=== PATIENT | female | born 1935 | race Caucasian/White ===

== ENCOUNTER 2017-12-22 16:26 | Inpatient (IN) ==
[2017-12-26 08:07] VITALS: BP 144/79
== END 2017-12-26 11:55 | DRG 689 ==
LOC: EDUNIT# → EDBD → N.ED 16:26 → SUATTDRO 19:37 → N.EDINP 19:37 → N.3E 20:51
PROVIDERS: ADMIT Internal Medicine; ATTEND Hospitalist

== ENCOUNTER 2018-07-31 20:42 | Inpatient (IN) ==
[2018-07-31] MEDS ORDERED: ONDANSETRON 4 MG/2 ML VIAL ONE (21:18)
[2018-07-31] MEDS ORDERED: SODIUM CHLORIDE 0.9% 1,000 ML IV STA (21:30)
[2018-07-31] MEDS ORDERED: ONDANSETRON 4 MG/2 ML VIAL IV STA (21:30)
[2018-07-31] MEDS ORDERED: KETOROLAC 30 MG/1 ML VIAL IV STA (21:46)
[2018-07-31 21:50] LABS: Basophils % 0.2 % (0.0-0.8); Eosinophils % 0.2 % (0.00-10.9); Hematocrit 38.4 VOL% (35.7-47.0); Hemoglobin 12.4 GM/DL (12.0-16.0); Immature Granulocytes % 0.7 %; Immature Granulocytes Absolute 0.11 #; Lymphocytes # 5.4 10*3/uL (1.4-4.0); Lymphocytes % 33.1 % (21.3-54.2); Mean Corpuscular HGB Conc 32.3 GM/DL (32-36); Mean Corpuscular Hemoglobin 31 PG (27-34); Mean Corpuscular Volume 96.5 FL (87-102); Mean Platelet Volume 9.8 FL (9.6-12.0); Monocytes # 0.9 10*3/uL (0.11-0.8); Monocytes % 5.8 % (1.7-12.7); Neutrophils # 9.8 10*3/uL (1.4-7.4); Platelet Count 200 T/CUMM (130-400); Red Blood Count 3.98 MC/CUMM (3.8-5.5); Red Cell Distribution Width 12.5 % (9.3-17.3); White Blood Count 16.3 T/CUMM (4-12)
[2018-07-31 22:12] LABS: Albumin 3.3 G/DL (3.4-5.0); Bilirubin,Total 0.5 MG/DL (0.2-1.0); Calcium 9.1 MG/DL (8.5-10.1); Osmolality,Calculated 281.7 MOS/KG (273-304); Potassium 3.5 MMOL/L (3.5-5.1); Total Protein 6.5 G/DL (6.4-8.3)
[2018-07-31 22:15] LABS: Lymphocytes 13 % (20-55); Platelet Estimate Normal; Segmented Neutrophils 78 % (50-85)
[2018-07-31 22:16] LABS: Anisocytosis Slight; Total Cells Counted 100
[2018-07-31] MEDS ORDERED: NITROGLYCERIN 2% OINT 1 INCH/GM PACK TOP STA (22:44)
[2018-07-31] MEDS ORDERED: ENOXAPARIN 30 MG/0.3 ML SYRINGE SUBCUT STA (22:44)
[2018-07-31] MEDS ORDERED: ASPIRIN 325 MG TABLET PO STA (22:44)
[2018-07-31] MEDS ORDERED: MORPHINE 4 MG/1 ML VIAL IV STA (22:44)
[2018-07-31] MEDS ORDERED: ASPIRIN 325 MG TABLET ONE (22:47)
[2018-07-31] MEDS ORDERED: ENOXAPARIN 60 MG/0.6 ML SYRINGE ONE (22:47)
[2018-07-31] MEDS ORDERED: MORPHINE 4 MG/1 ML VIAL IV PRN (23:37)
[2018-07-31] MEDS ORDERED: ONDANSETRON ODT 4 MG TABLET PO PRN (23:44)
[2018-07-31] MEDS ORDERED: FLUTICASONE 50 MCG NASAL SPRAY 16 GM BOTTLE BOTH NARES PRN (23:44)
[2018-07-31] MEDS ORDERED: DIPHENOXYLATE/ATROPINE 2.5-0.025 MG TABLET PO PRN (23:44)
[2018-07-31] MEDS ORDERED: GLUCAGON 1 MG VIAL IM PRN (23:47)
[2018-07-31] MEDS ORDERED: DEXTROSE 50% 25 GM/50 ML SYRINGE IV PRN (23:47)
[2018-08-01] MEDS: ONDANSETRON 4 MG/2 ML VIAL IV PRN ×3 (01:27→10:00)
[2018-08-01 01:33] LABS: Risk Ratio 3.37; VLDL CHOLESTEROL 27.4 MG/DL
[2018-08-01] MEDS: QUEtiapine 25 MG TABLET PO SCH ×2 (06:55→21:46)
[2018-08-01] MEDS: INSULIN REGULAR 100 UNIT/ML SUBCUT SCH ×5 (06:55→21:50)
[2018-08-01] MEDS: NITROGLYCERIN 2% OINT 1 INCH/GM PACK TOP SCH ×2 (06:56→12:25)
[2018-08-01] MEDS: MELOXICAM 7.5 MG TABLET PO SCH (08:09)
[2018-08-01] MEDS ORDERED: ENOXAPARIN 80 MG/0.8 ML SYRINGE SUBCUT SCH (12:00)
[2018-08-01] MEDS ORDERED: diphenhydrAMINE CAP 50 MG CAPSULE PO STA (12:04)
[2018-08-01] MEDS: FEXOFENADINE 180 MG TABLET PO SCH (12:22)
[2018-08-01] MEDS: CALCIUM (CARBONATE)/VITAMIN D 600 MG-400 UNIT TABLET PO SCH ×2 (12:23→21:46)
[2018-08-01] MEDS: OXYBUTYNIN XL 5 MG TABLET PO SCH (12:23)
[2018-08-01] MEDS: AZELASTINE NASAL 137 MCG/SPRAY 30 ML BOTTLE BOTH NARES SCH ×2 (12:23→21:46)
[2018-08-01] MEDS: METOPROLOL TARTRATE 50 MG TABLET PO SCH (12:23)
[2018-08-01] MEDS: POTASSIUM CHLORIDE 10 MEQ TABLET PO SCH ×2 (12:23→21:47)
[2018-08-01] MEDS: PANTOPRAZOLE 40 MG TABLET PO SCH (12:24)
[2018-08-01] MEDS: SERTRALINE 50 MG TABLET PO SCH (12:24)
[2018-08-01] MEDS: GABAPENTIN 100 MG CAPSULE PO SCH ×3 (12:24→21:47)
[2018-08-01] MEDS: MEMANTINE 5 MG TABLET PO SCH ×2 (12:24→21:47)
[2018-08-01] MEDS: ASPIRIN EC 81 MG TABLET PO SCH (12:24)
[2018-08-01] MEDS: LISINOPRIL 10 MG TABLET PO SCH (12:24)
[2018-08-01] MEDS ORDERED: HYDROmorphone 2 MG/1 ML VIAL ONE (12:32)
[2018-08-01] MEDS ORDERED: MIDAZOLAM 2 MG/2 ML VIAL ONE (12:32)
[2018-08-01] MEDS ORDERED: LIDOCAINE 1% 20 ML VIAL ONE (12:32)
[2018-08-01] MEDS ORDERED: HEPARIN/NACL 0.9% 2 UNITS/ML 500 ML IV ONE (12:37)
[2018-08-01] MEDS: SODIUM CHLORIDE 0.9% 1,000 ML IV SCH ×2 (12:50→23:55)
[2018-08-01] MEDS ORDERED: MAGNESIUM SULF RIDER 2 GM in PREMIX 1 EACH IV PRN (12:53)
[2018-08-01] MEDS ORDERED: diphenhydrAMINE CAP 25 MG CAPSULE PO ONE (12:53)
[2018-08-01] MEDS ORDERED: POTASSIUM CHLORIDE RIDER 10 MEQ in PREMIX 1 EACH IV PRN (12:53)
[2018-08-01] MEDS ORDERED: ADENOSINE 90 MG/30 ML VIAL IV ONE (13:26)
[2018-08-02 04:56] LABS: Calcium 8.2 MG/DL (8.5-10.1); Potassium 3.6 MMOL/L (3.5-5.1)
[2018-08-02] MEDS: INSULIN REGULAR 100 UNIT/ML SUBCUT SCH ×2 (07:23→11:33)
[2018-08-02] MEDS: SODIUM CHLORIDE 0.9% 1,000 ML IV SCH (07:23)
[2018-08-02] MEDS: CALCIUM (CARBONATE)/VITAMIN D 600 MG-400 UNIT TABLET PO SCH (08:15)
[2018-08-02] MEDS: MELOXICAM 7.5 MG TABLET PO SCH (08:15)
[2018-08-02] MEDS: GABAPENTIN 100 MG CAPSULE PO SCH (08:16)
[2018-08-02] MEDS: FEXOFENADINE 180 MG TABLET PO SCH (08:16)
[2018-08-02] MEDS: MEMANTINE 5 MG TABLET PO SCH (08:16)
[2018-08-02] MEDS: ASPIRIN EC 81 MG TABLET PO SCH (08:16)
[2018-08-02] MEDS: LISINOPRIL 10 MG TABLET PO SCH (08:16)
[2018-08-02] MEDS: POTASSIUM CHLORIDE 10 MEQ TABLET PO SCH (08:16)
[2018-08-02] MEDS: METOPROLOL TARTRATE 50 MG TABLET PO SCH (08:17)
[2018-08-02] MEDS: PANTOPRAZOLE 40 MG TABLET PO SCH (08:18)
[2018-08-02] MEDS: SERTRALINE 50 MG TABLET PO SCH (08:18)
[2018-08-02] MEDS: OXYBUTYNIN XL 5 MG TABLET PO SCH (08:18)
[2018-08-02] MEDS: AZELASTINE NASAL 137 MCG/SPRAY 30 ML BOTTLE BOTH NARES SCH (10:23)
[2018-08-02 11:54] VITALS: BP 124/58
[2018-08-02] MEDS ORDERED: ATORVASTATIN 10 MG TABLET PO SCH (21:00)
== END 2018-08-02 13:10 | disposition home or self-care (01) | DRG 392 ==
LOC: N.ED 20:42 → N.EDINP 23:32 → N.TELEN 08-01 00:13
PROVIDERS: ADMIT Internal Medicine; ATTEND Internal Medicine
PROC: CLCCHCL (ICD-10-PCS; 2018-08-01 12:45)

== ENCOUNTER 2018-08-14 09:47 | Inpatient (IN) ==
[2018-08-14] MEDS ORDERED: ONDANSETRON 4 MG/2 ML VIAL IV STA (11:09)
[2018-08-14] MEDS ORDERED: SODIUM CHLORIDE 0.9% 500 ML IV STA (11:09)
[2018-08-14 11:17] LABS: Basophils % 0.1 % (0.0-0.8); Hematocrit 34.5 VOL% (35.7-47.0); Hemoglobin 10.9 GM/DL (12.0-16.0); Immature Granulocytes % 0.8 %; Immature Granulocytes Absolute 0.11 #; Lymphocytes # 5.5 10*3/uL (1.4-4.0); Lymphocytes % 39.8 % (21.3-54.2); Mean Corpuscular HGB Conc 31.6 GM/DL (32-36); Mean Corpuscular Hemoglobin 32 PG (27-34); Mean Corpuscular Volume 100.3 FL (87-102); Mean Platelet Volume 10.3 FL (9.6-12.0); Monocytes % 7.3 % (1.7-12.7); Neutrophils # 7.3 10*3/uL (1.4-7.4); Platelet Count 202 T/CUMM (130-400); Red Blood Count 3.44 MC/CUMM (3.8-5.5); Red Cell Distribution Width 13.2 % (9.3-17.3); White Blood Count 13.9 T/CUMM (4-12)
[2018-08-14 11:29] LABS: Alanine Aminotransferase 16 U/L (13-56); Alkaline Phosphatase 87 U/L (45-117); Aspartate Amino Transferase 15 U/L (0-37); Blood Urea Nitrogen 8 MG/DL (7-18); Calcium 7.9 MG/DL (8.5-10.1); Glucose 187 MG/DL (74-106); Lipase < 50.0 U/L (73-393); Osmolality,Calculated 277.7 MOS/KG (273-304); Potassium 3.1 MMOL/L (3.5-5.1); Sodium 138 MMOL/L (136-145); Total Protein 5.8 G/DL (6.4-8.3)
[2018-08-14 11:42] LABS: Lymphocytes 30 % (20-55); Segmented Neutrophils 65 % (50-85); Total Cells Counted 100
[2018-08-14 11:43] LABS: Atypical Lymphocytes Few; Macrocytosis Slight; Platelet Estimate Normal
[2018-08-14 13:36] LABS: Apearance,Urine CLEAR (Clear); Bilirubin,Urine Negative (Negative); Blood, Urine Small mg/dL (Negative); Glucose,Urine (UA) 50 mg/dL (Negative); Ketones,Urine 5 mg/dL (Negative); Nitrite,Urine Negative (Negative); Protein,Urine Negative; RBC,Urine 1 /HPF (0-4); Squamous Epithelial Cell,Urine Occasional /HPF (0-10); Urine Color Straw (Yellow); Urine Specific Gravity 1.003 (1.001-1.035); Urine Urobilinogen < 2.0 EU/DL (0.2-1.0); WBC,Urine <1 /HPF (0-6)
[2018-08-14] MEDS ORDERED: ONDANSETRON 4 MG/2 ML VIAL IV PRN (16:18)
[2018-08-14] MEDS ORDERED: DEXTROSE 50% 25 GM/50 ML SYRINGE IV PRN (16:18)
[2018-08-14] MEDS ORDERED: GLUCAGON 1 MG VIAL IM PRN (16:18)
[2018-08-14] MEDS ORDERED: DOCUSATE SODIUM 100 MG CAPSULE PO PRN (16:18)
[2018-08-14] MEDS ORDERED: metroNIDAZOLE INJ 500 MG in PREMIX 1 EACH IV SCH (17:00)
[2018-08-14] MEDS: INSULIN LISPRO 100 UNIT/ML SUBCUT SCH ×2 (18:05→21:32)
[2018-08-14] MEDS: CIPROFLOXACIN INJ 400 MG in PREMIX 1 EACH IV SCH (18:10)
[2018-08-14 18:18] LABS: Risk Ratio 2.89; Thyroid Stimulating Hormone 1.75 uIU/ml (0.358-3.74); VLDL CHOLESTEROL 11.6 MG/DL
[2018-08-14] MEDS: BUDESONIDE 0.25 MG/2 ML NEB RESP TX SCH (18:46)
[2018-08-14] MEDS ORDERED: ENOXAPARIN 40 MG/0.4 ML SYRINGE SUBCUT SCH (21:00)
[2018-08-14] MEDS: metroNIDAZOLE INJ 500 MG in PREMIX 1 EACH IV SCH (21:30)
[2018-08-15] MEDS: ACETAMINOPHEN 325 MG TABLET PO PRN ×2 (01:19→09:24)
[2018-08-15 03:15] LABS: Apearance,Urine CLEAR (Clear); Bilirubin,Urine Negative (Negative); Blood, Urine Small mg/dL (Negative); Glucose,Urine (UA) Negative (Negative); Ketones,Urine Negative (Negative); Mucus,Urine Occasional /LPF (Occasional); Nitrite,Urine Negative (Negative); Protein,Urine Negative; RBC,Urine 3 /HPF (0-4); Squamous Epithelial Cell,Urine Few /HPF (0-10); Urine Color Yellow (Yellow); Urine Specific Gravity > 1.060 (1.001-1.035); Urine Urobilinogen < 2.0 EU/DL (0.2-1.0); WBC,Urine 10 /HPF (0-6)
[2018-08-15 04:40] LABS: Basophils # 0.1 10*3/uL (0.0-0.2); Basophils % 0.4 % (0.0-0.8); Eosinophils # 0.2 10*3/uL (0.0-0.87); Eosinophils % 1.2 % (0.00-10.9); Hematocrit 32.7 VOL% (35.7-47.0); Hemoglobin 10.4 GM/DL (12.0-16.0); Immature Granulocytes % 0.5 %; Immature Granulocytes Absolute 0.07 #; Lymphocytes # 5.9 10*3/uL (1.4-4.0); Lymphocytes % 44.9 % (21.3-54.2); Mean Corpuscular HGB Conc 31.8 GM/DL (32-36); Mean Corpuscular Hemoglobin 32 PG (27-34); Mean Platelet Volume 10.1 FL (9.6-12.0); Monocytes % 7.4 % (1.7-12.7); Neutrophils % 45.6 % (38.7-73.9); Platelet Count 198 T/CUMM (130-400); Red Blood Count 3.27 MC/CUMM (3.8-5.5); Red Cell Distribution Width 13.3 % (9.3-17.3); White Blood Count 13.2 T/CUMM (4-12)
[2018-08-15] MEDS: metroNIDAZOLE INJ 500 MG in PREMIX 1 EACH IV SCH ×3 (04:46→22:02)
[2018-08-15 05:31] LABS: Calcium 7.7 MG/DL (8.5-10.1); Osmolality,Calculated 279.1 MOS/KG (273-304)
[2018-08-15] MEDS: POTASSIUM CHLORIDE 20 MEQ TABLET PO PRN ×4 (06:48→12:22)
[2018-08-15] MEDS: INSULIN LISPRO 100 UNIT/ML SUBCUT SCH ×4 (07:32→21:15)
[2018-08-15] MEDS: BUDESONIDE 0.25 MG/2 ML NEB RESP TX SCH ×2 (08:15→19:50)
[2018-08-15] MEDS: PANTOPRAZOLE 40 MG TABLET PO SCH (08:35)
[2018-08-15] MEDS: LIDOCAINE 5% PATCH TRANSDERM SCH (10:28)
[2018-08-15] MEDS: SODIUM CHLORIDE 0.9% 1,000 ML IV SCH (11:07)
[2018-08-15] MEDS ORDERED: POTASSIUM CHLORIDE 20 MEQ TABLET PO ONE (13:06)
[2018-08-15] MEDS ORDERED: FLUTICASONE 50 MCG NASAL SPRAY 16 GM BOTTLE BOTH NARES PRN (13:18)
[2018-08-15] MEDS ORDERED: ASPIRIN EC 81 MG TABLET PO SCH (13:30)
[2018-08-15] MEDS ORDERED: SULFAMETHOX/TRIMETHOPRIM 800-160 MG TABLET PO ONE (13:48)
[2018-08-15] MEDS ORDERED: SULFAMETHOX/TRIMETHOPRIM 800-160 MG TABLET PO SCH ×2 (14:00→17:00)
[2018-08-15] MEDS: traMADol 50 MG TABLET PO SCH ×2 (14:32→22:03)
[2018-08-15] MEDS: SERTRALINE 50 MG TABLET PO SCH (14:33)
[2018-08-15] MEDS: POTASSIUM CHLORIDE 10 MEQ TABLET PO SCH ×2 (14:35→22:04)
[2018-08-15] MEDS: FEXOFENADINE 180 MG TABLET PO SCH (14:35)
[2018-08-15] MEDS: METOPROLOL TARTRATE 50 MG TABLET PO SCH (14:35)
[2018-08-15] MEDS: GABAPENTIN 100 MG CAPSULE PO SCH ×2 (14:35→22:04)
[2018-08-15] MEDS: MEMANTINE 5 MG TABLET PO SCH ×2 (14:36→22:04)
[2018-08-15] MEDS: CIPROFLOXACIN INJ 400 MG in PREMIX 1 EACH IV SCH (17:13)
[2018-08-15] MEDS: DONEPEZIL 10 MG TABLET PO SCH (19:45)
[2018-08-15] MEDS: METHOCARBAMOL 500 MG TABLET PO SCH (22:02)
[2018-08-15] MEDS: QUEtiapine 25 MG TABLET PO SCH (22:04)
[2018-08-15] MEDS: ENOXAPARIN 40 MG/0.4 ML SYRINGE SUBCUT SCH (22:04)
[2018-08-16] MEDS: SODIUM CHLORIDE 0.9% 1,000 ML IV SCH ×3 (02:14→20:49)
[2018-08-16 05:06] LABS: Basophils % 0.5 % (0.0-0.8); Eosinophils # 0.3 10*3/uL (0.0-0.87); Eosinophils % 3.3 % (0.00-10.9); Hematocrit 32.9 VOL% (35.7-47.0); Hemoglobin 10.5 GM/DL (12.0-16.0); Immature Granulocytes % 0.5 %; Immature Granulocytes Absolute 0.04 #; Lymphocytes # 3.9 10*3/uL (1.4-4.0); Lymphocytes % 46.3 % (21.3-54.2); Mean Corpuscular HGB Conc 31.9 GM/DL (32-36); Mean Corpuscular Hemoglobin 32 PG (27-34); Mean Corpuscular Volume 100.9 FL (87-102); Mean Platelet Volume 10.3 FL (9.6-12.0); Monocytes # 0.9 10*3/uL (0.11-0.8); Monocytes % 10.1 % (1.7-12.7); Neutrophils # 3.4 10*3/uL (1.4-7.4); Neutrophils % 39.3 % (38.7-73.9); Platelet Count 191 T/CUMM (130-400); Red Blood Count 3.26 MC/CUMM (3.8-5.5); Red Cell Distribution Width 13.8 % (9.3-17.3); White Blood Count 8.5 T/CUMM (4-12)
[2018-08-16 05:38] LABS: Calcium 8.2 MG/DL (8.5-10.1); Potassium 4.3 MMOL/L (3.5-5.1)
[2018-08-16] MEDS: metroNIDAZOLE INJ 500 MG in PREMIX 1 EACH IV SCH ×3 (06:23→20:43)
[2018-08-16] MEDS: INSULIN LISPRO 100 UNIT/ML SUBCUT SCH ×4 (07:46→20:43)
[2018-08-16] MEDS: BUDESONIDE 0.25 MG/2 ML NEB RESP TX SCH ×2 (08:00→20:04)
[2018-08-16] MEDS ORDERED: POTASSIUM CHLORIDE 20 MEQ TABLET PO SCH (09:00)
[2018-08-16] MEDS: FOSINOPRIL 10 MG TABLET PO SCH (09:20)
[2018-08-16] MEDS: POTASSIUM CHLORIDE 10 MEQ TABLET PO SCH ×2 (09:20→20:41)
[2018-08-16] MEDS: sitaGLIPtin 100 MG TABLET PO SCH (09:20)
[2018-08-16] MEDS: FEXOFENADINE 180 MG TABLET PO SCH (09:20)
[2018-08-16] MEDS: MEMANTINE 5 MG TABLET PO SCH ×2 (09:21→20:41)
[2018-08-16] MEDS: SULFAMETHOX/TRIMETHOPRIM 800-160 MG TABLET PO SCH ×2 (09:21→16:39)
[2018-08-16] MEDS: SERTRALINE 50 MG TABLET PO SCH (09:21)
[2018-08-16] MEDS: PANTOPRAZOLE 40 MG TABLET PO SCH (09:21)
[2018-08-16] MEDS: traMADol 50 MG TABLET PO SCH ×2 (09:22→20:41)
[2018-08-16] MEDS: METOPROLOL TARTRATE 50 MG TABLET PO SCH (09:22)
[2018-08-16] MEDS: LIDOCAINE 5% PATCH TRANSDERM SCH (09:22)
[2018-08-16] MEDS: GABAPENTIN 100 MG CAPSULE PO SCH ×3 (13:38→20:41)
[2018-08-16] MEDS: ATORVASTATIN 10 MG TABLET PO SCH (13:38)
[2018-08-16] MEDS: METHOCARBAMOL 500 MG TABLET PO SCH ×2 (13:39→23:13)
[2018-08-16] MEDS: CIPROFLOXACIN INJ 400 MG in PREMIX 1 EACH IV SCH (16:39)
[2018-08-16] MEDS: DONEPEZIL 10 MG TABLET PO SCH (20:41)
[2018-08-16] MEDS: QUEtiapine 25 MG TABLET PO SCH (20:42)
[2018-08-16] MEDS: ENOXAPARIN 40 MG/0.4 ML SYRINGE SUBCUT SCH (20:43)
[2018-08-17] MEDS: metroNIDAZOLE INJ 500 MG in PREMIX 1 EACH IV SCH (04:00)
[2018-08-17 05:22] LABS: Basophils # 0.1 10*3/uL (0.0-0.2); Basophils % 0.6 % (0.0-0.8); Eosinophils # 0.3 10*3/uL (0.0-0.87); Eosinophils % 3.2 % (0.00-10.9); Hematocrit 32.8 VOL% (35.7-47.0); Hemoglobin 10.6 GM/DL (12.0-16.0); Immature Granulocytes % 0.5 %; Immature Granulocytes Absolute 0.04 #; Lymphocytes # 4.1 10*3/uL (1.4-4.0); Mean Corpuscular HGB Conc 32.3 GM/DL (32-36); Mean Corpuscular Hemoglobin 32 PG (27-34); Mean Corpuscular Volume 99.7 FL (87-102); Mean Platelet Volume 9.8 FL (9.6-12.0); Monocytes # 0.8 10*3/uL (0.11-0.8); Monocytes % 8.6 % (1.7-12.7); Neutrophils # 3.5 10*3/uL (1.4-7.4); Neutrophils % 40.1 % (38.7-73.9); Platelet Count 185 T/CUMM (130-400); Red Blood Count 3.29 MC/CUMM (3.8-5.5); Red Cell Distribution Width 13.7 % (9.3-17.3); White Blood Count 8.7 T/CUMM (4-12)
[2018-08-17 05:52] LABS: Calcium 8.2 MG/DL (8.5-10.1); Osmolality,Calculated 274.5 MOS/KG (273-304); Potassium 3.8 MMOL/L (3.5-5.1)
[2018-08-17] MEDS: BUDESONIDE 0.25 MG/2 ML NEB RESP TX SCH ×2 (08:00→19:02)
[2018-08-17] MEDS: SERTRALINE 50 MG TABLET PO SCH (09:17)
[2018-08-17] MEDS: FOSINOPRIL 10 MG TABLET PO SCH (09:17)
[2018-08-17] MEDS: MEMANTINE 5 MG TABLET PO SCH ×2 (09:18→21:50)
[2018-08-17] MEDS: GABAPENTIN 100 MG CAPSULE PO SCH ×3 (09:18→21:50)
[2018-08-17] MEDS: POTASSIUM CHLORIDE 10 MEQ TABLET PO SCH ×2 (09:18→21:50)
[2018-08-17] MEDS: traMADol 50 MG TABLET PO SCH ×2 (09:18→21:50)
[2018-08-17] MEDS: FEXOFENADINE 180 MG TABLET PO SCH (09:18)
[2018-08-17] MEDS: METOPROLOL TARTRATE 50 MG TABLET PO SCH (09:18)
[2018-08-17] MEDS: SULFAMETHOX/TRIMETHOPRIM 800-160 MG TABLET PO SCH ×2 (09:18→18:43)
[2018-08-17] MEDS: PANTOPRAZOLE 40 MG TABLET PO SCH (09:19)
[2018-08-17] MEDS: POTASSIUM CHLORIDE 20 MEQ TABLET PO PRN (09:19)
[2018-08-17] MEDS: LIDOCAINE 5% PATCH TRANSDERM SCH (09:19)
[2018-08-17] MEDS: sitaGLIPtin 100 MG TABLET PO SCH (09:20)
[2018-08-17] MEDS: METHOCARBAMOL 500 MG TABLET PO SCH ×2 (09:20→21:50)
[2018-08-17] MEDS: INSULIN LISPRO 100 UNIT/ML SUBCUT SCH ×4 (09:20→20:24)
[2018-08-17] MEDS: SODIUM CHLORIDE 0.9% 1,000 ML IV SCH (14:42)
[2018-08-17] MEDS ORDERED: HYDROmorphone 2 MG/1 ML VIAL IV PRN (15:40)
[2018-08-17] MEDS: DONEPEZIL 10 MG TABLET PO SCH (18:44)
[2018-08-17] MEDS: QUEtiapine 25 MG TABLET PO SCH (21:50)
[2018-08-18] MEDS: SODIUM CHLORIDE 0.9% 1,000 ML IV SCH ×4 (06:42→17:21)
[2018-08-18] MEDS: BUDESONIDE 0.25 MG/2 ML NEB RESP TX SCH ×2 (08:05→20:45)
[2018-08-18] MEDS: POTASSIUM CHLORIDE 10 MEQ TABLET PO SCH ×2 (08:22→21:00)
[2018-08-18] MEDS: INSULIN LISPRO 100 UNIT/ML SUBCUT SCH ×4 (08:22→21:01)
[2018-08-18] MEDS: SULFAMETHOX/TRIMETHOPRIM 800-160 MG TABLET PO SCH ×2 (08:22→16:28)
[2018-08-18] MEDS: sitaGLIPtin 100 MG TABLET PO SCH (08:22)
[2018-08-18] MEDS: FEXOFENADINE 180 MG TABLET PO SCH (08:22)
[2018-08-18] MEDS: SERTRALINE 50 MG TABLET PO SCH (08:23)
[2018-08-18] MEDS: GABAPENTIN 100 MG CAPSULE PO SCH ×3 (08:23→21:01)
[2018-08-18] MEDS: MEMANTINE 5 MG TABLET PO SCH ×2 (08:23→21:01)
[2018-08-18] MEDS: traMADol 50 MG TABLET PO SCH ×2 (08:23→21:00)
[2018-08-18] MEDS: METHOCARBAMOL 500 MG TABLET PO SCH ×2 (08:23→21:02)
[2018-08-18] MEDS: PANTOPRAZOLE 40 MG TABLET PO SCH (08:23)
[2018-08-18] MEDS: METOPROLOL TARTRATE 50 MG TABLET PO SCH (09:22)
[2018-08-18] MEDS: FOSINOPRIL 10 MG TABLET PO SCH (09:22)
[2018-08-18] MEDS: LIDOCAINE 5% PATCH TRANSDERM SCH (09:23)
[2018-08-18] MEDS ORDERED: ROPIVACAINE 0.5% 30 ML VIAL ONE (11:47)
[2018-08-18] MEDS ORDERED: TISSUE ADHESIVE 1 EACH APPLICATOR TOP ONE (12:40)
[2018-08-18] MEDS ORDERED: PROPOFOL 200 MG/20 ML VIAL IV ONE (12:42)
[2018-08-18] MEDS ORDERED: fentaNYL 100 MCG/2 ML VIAL ONE (12:43)
[2018-08-18] MEDS: HYDROmorphone 2 MG/1 ML VIAL IV PRN ×2 (13:04→13:15)
[2018-08-18] MEDS ORDERED: HYDROmorphone 2 MG/1 ML VIAL ONE (13:05)
[2018-08-18] MEDS ORDERED: DONEPEZIL 10 MG TABLET PO SCH (21:00)
[2018-08-18] MEDS: QUEtiapine 25 MG TABLET PO SCH (21:01)
[2018-08-19] MEDS: SODIUM CHLORIDE 0.9% 1,000 ML IV SCH (06:20)
[2018-08-19 07:36] VITALS: BP 132/59
[2018-08-19] MEDS: BUDESONIDE 0.25 MG/2 ML NEB RESP TX SCH (07:51)
[2018-08-19] MEDS: INSULIN LISPRO 100 UNIT/ML SUBCUT SCH (08:23)
[2018-08-19] MEDS: ATORVASTATIN 10 MG TABLET PO SCH (09:03)
[2018-08-19] MEDS: POTASSIUM CHLORIDE 10 MEQ TABLET PO SCH (09:03)
[2018-08-19] MEDS: FOSINOPRIL 10 MG TABLET PO SCH (09:03)
[2018-08-19] MEDS: GABAPENTIN 100 MG CAPSULE PO SCH (09:03)
[2018-08-19] MEDS: sitaGLIPtin 100 MG TABLET PO SCH (09:03)
[2018-08-19] MEDS: METOPROLOL TARTRATE 50 MG TABLET PO SCH (09:03)
[2018-08-19] MEDS: METHOCARBAMOL 500 MG TABLET PO SCH (09:03)
[2018-08-19] MEDS: SERTRALINE 50 MG TABLET PO SCH (09:03)
[2018-08-19] MEDS: SULFAMETHOX/TRIMETHOPRIM 800-160 MG TABLET PO SCH (09:03)
[2018-08-19] MEDS: MEMANTINE 5 MG TABLET PO SCH (09:03)
[2018-08-19] MEDS: LIDOCAINE 5% PATCH TRANSDERM SCH (09:04)
[2018-08-19] MEDS: PANTOPRAZOLE 40 MG TABLET PO SCH (09:04)
[2018-08-19] MEDS: FEXOFENADINE 180 MG TABLET PO SCH (09:04)
[2018-08-19] MEDS: traMADol 50 MG TABLET PO SCH (09:04)
== END 2018-08-19 10:55 | disposition home health service (06) | DRG 479 ==
LOC: EDUNIT# → EDBD → N.ED 09:47 → N.EDINP 16:18 → SUATTDRO 16:18 → N.5E 17:11
PROVIDERS: ADMIT Internal Medicine Nephrology; ATTEND Hospitalist